=== PATIENT | female | born 1955 | race Caucasian/White ===

== ENCOUNTER 2016-12-24 12:59 | Outpatient (CLI) | payer BC | END 2016-12-24 20:45 | disposition home or self-care (01) | LOC: SRD 12:59 | PROVIDERS: ATTEND Internal Medicine Cardiovascular Disease | DX: Z01.818 Encounter for other preprocedural examination (principal) | CPT/HCPCS: 71010 ==

== ENCOUNTER 2017-01-02 06:47 | Day surgery (SDC) | payer BC ==
[~2017-01-02] VITALS: Ht 175.3 cm; Wt 71.2 kg
[2017-01-02] MEDS ORDERED: SEVOFLURANE 15 MIN GAS INH ONE (08:20)
[2017-01-02] MEDS ORDERED: fentaNYL CITRATE 250 MCG/5 ML AMP IV ONE (08:20)
[2017-01-02] MEDS ORDERED: METOCLOPRAMIDE HCL 10 MG/2 ML VIAL IVP ONE (08:20)
[2017-01-02] MEDS ORDERED: ONDANSETRON HCL 4 MG/2 ML VIAL IVP ONE (08:20)
[2017-01-02] MEDS ORDERED: ROCURONIUM BROMIDE 10 MG/ML (ZEMURON) IV ONE (08:20)
[2017-01-02] MEDS ORDERED: LR 1,000 ML IV.SOLN IV ONE (08:20)
[2017-01-02] MEDS ORDERED: KETOROLAC TROMETHAMINE 30 MG VIAL IVP ONE (08:20)
[2017-01-02] MEDS ORDERED: DEXAMETHASONE SOD PHOSPHATE 4 MG/ML VIAL IVP ONE (08:20)
[2017-01-02] MEDS ORDERED: MIDAZOLAM HCL 5 MG/5 ML VIAL IVP ONE (08:20)
[2017-01-02] MEDS ORDERED: LIDOCAINE/EPI 1% 1:100000 20 ML VIAL INJ ONE (08:20)
[2017-01-02] MEDS ORDERED: NS IRRIG SOLN 1000 ML IR ONE (08:20)
[2017-01-02] MEDS ORDERED: LR 1,000 ML IV SCH (09:44)
[2017-01-02] MEDS ORDERED: HYDROmorphone 1 MG INJ. 1 MG/ML AMPUL IVP PRN (09:45)
[2017-01-02] MEDS ORDERED: MEPERIDINE HCL/PF 25 MG/ML DISP.SYRIN IVP PRN (09:45)
[2017-01-02] MEDS ORDERED: HYDROmorphone 2 MG/ML VIAL IVP PRN ×2 (09:45)
[2017-01-02 11:42] VITALS: BP_SYST 119
== END 2017-01-02 12:55 | disposition home or self-care (01) ==
LOC: SDS 06:47 → SMU 06:48 → SDS 12:55
PROVIDERS: ATTEND Otolaryngology
DX: J34.2 Deviated nasal septum (principal); J34.89 Other specified disorders of nose and nasal sinuses; M54.30 Sciatica, unspecified side; E06.3 Autoimmune thyroiditis; E03.9 Hypothyroidism, unspecified; G47.33 Obstructive sleep apnea (adult) (pediatric); K21.9 Gastro-esophageal reflux disease without esophagitis
CPT/HCPCS: 30140; 30520; 88305; J1100; J1885; J2250; J2405; J2765; J3010; J7120; 88311